=== PATIENT | male | born 1955 | race Caucasian/White ===

== ENCOUNTER 2021-07-14 21:02 | Emergency (ER) | payer MEDICARE ==
[2021-07-14 21:42] LABS: HEMOGLOBIN 12.9 gm/dl (14.0-17.5); RED BLOOD COUNT 3.83 M/UL (4.20-5.50); WHITE BLOOD COUNT 11.8 K/UL (4.5-11.0)
[2021-07-14 22:08] LABS: BUN/CREATININE RATIO 20 (0-10)
[2021-07-14] MEDS ORDERED: PREDNISONE20 MG PO (23:36)
[2021-07-14] MEDS ORDERED: PROVENTIL HFA6.7 GM INH (23:36)
[2021-07-14] MEDS ORDERED: AEROCHAMBER1 EA XX (23:36)
== END 2021-07-14 23:45 | disposition home or self-care (01) ==
LOC: ER1 21:02
PROVIDERS: Family Medicine
DX: J45.901 Unspecified asthma with (acute) exacerbation (principal); Z20.822 Contact with and (suspected) exposure to COVID-19
CPT/HCPCS: 36600; 71045; 80053; 82550; 82553; 82803; 83605; 83874; 83880; 84484; 85025; 93005; 94640; 94664; 94760; 96374; 99285; J2930; U0002